=== PATIENT | female | born 1980 | race Caucasian/White ===

== ENCOUNTER 2017-08-01 12:09 | Observation (INO) ==
--- NOTE | 2017-08-01 13:10 | Emergency Department Note ---
Disposition Clinical Impression: Blood loss anemia, Dysfunctional uterine bleeding Disposition: Admitted As Inpatient Time of Disposition: 15:51 Female Urogenital HPI - General Chief complaint: ED Vaginal Bleeding Stated complaint: vaginal bleeding, low HGB Time Seen by Provider: 08/01/17 12:35 Source: patient Limitations: no limitations Nursing Notes Reviewed: Yes Vital Signs Reviewed: Yes - History of Present Illness HPI Narrative: Mrs. awan, 36-year-old female, presents from home for evaluation of persistent heavy vaginal bleeding. Onset 27 days ago. Described as saturating a 10 hour pad every hour. 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 Patient feels fatigued. No vertigo. No fevers, chills, chest pains, palpitations, nausea, vomiting. Patient has a history of heavy menses which typically last 1 week. Patient has a history of uterine fibroids and is status post remote D&C and ablation. TEST MANAGER: Dr. Strong Pt Subjective Complaint: vaginal bleeding Onset (ago): week(s) Improves with: none Worsens with: none Urinary Symptoms: no dysuria, no urgency Vaginal discharge: blood : no - Related Data Home Medications Medication Instructions Recorded Confirmed Acetaminophen/Diphenhydramine [Eql 1 each PO HS PRN 08/01/17 08/01/17 Acetaminophen Pm Caplet] DiphenhydraMINE [Benadryl] 25 mg PO HS PRN 08/01/17 08/01/17 Allergies Allergy/AdvReac Type Severity Reaction Status Date / Time No Known Allergies Allergy Verified 12/13/15 03:44 All systems ED: reviewed and negative except as stated. Review of Systems: As Per HPI Constitutional: Denies: fever, chills Cardiovascular: Denies: chest pain Respiratory: Denies: cough, dyspnea Gastrointestinal: Denies: nausea, vomiting Genitourinary: Denies: dysuria Past Medical History - Past Medical History Attestation: Yes The following information was validated with the patient. Medical history: Reports: non-contributory Psychiatric history: Reports: no psych history TEST MANAGER history: Reports: bilateral tubal ligation, other - Social History Smoking Status: Former smoker Smokeless Tobacco Status: No Alcohol use: Reports: rarely Drug use: Reports: none Physical Exam Vital Signs Reviewed General: Patient is alert, oriented, and in no acute distress. HEENT: No facial asymmetry. Head is normocephalic and atraumatic. PERRLA. Conjunctiva pale. Cardiovascular: Heart regular rate and rhythm without clicks, rubs, gallops, or murmurs. Bilateral radial pulses 2/4 equal. Respiratory: Symmetric chest rise with good respiratory effort. Bilateral breath sounds are clear without wheezing, crackles, or rhonchi. Abdomen: Bowel sounds present normoactive x-4 quadrants. Abdomen is soft, nondistended. Mild suprapubic tenderness. Speculum Pelvic exam: External genitalia unremarkable. No blood at the vaginal vestibule. Dark blood in vaginal vault with small pooling posteriorly. Cervical os closed with trickle of dark blood. Musculoskeletal: Spontaneously moving all extremities Neuro: GCS 15. Alert and oriented 4. Skin: Warm, dry, pale, intact. Psych: Patient's affect is appropriate for situation. - General Limitations: no limitations General appearance: alert, in no apparent distress Course Course Narrative: Patient does appear pale but physical exam. Vital signs stable without tachycardia or hypotension. We will repeat lab work, type and screen, perform pelvic exam. Patient is anemic at hemoglobin 6.6. She has some macrocytosis inferring some component of iron deficiency. Pelvic exam shows blood from cervical os without hemorrhage. We will consult OB for recommendations. TEST MANAGER is agreeable to admission to unit for transfusion and continued evaluation. I discussed the above the patient and her at bedside. They are agreeable to this plan of action. Consent for transfusion obtained. 2 units RBC ordered. Patient admitted to TEST MANAGER. Vital Signs Temperature 98.4 F 08/01/17 12:21 Pulse Rate 91 08/01/17 12:21 Respiratory Rate 18 08/01/17 12:21 Blood Pressure 127/89 08/01/17 12:21 O2 Sat by Pulse Oximetry 100 08/01/17 12:21 Temperature 98.4 F 08/01/17 12:21 Pulse Rate 81 08/01/17 15:33 Respiratory Rate 16 08/01/17 16:35 Blood Pressure 110/54 08/01/17 16:35 O2 Sat by Pulse Oximetry 98 08/01/17 15:33 Oxygen Delivery Oxygen Delivery Room Air Urogenital-Female - Lab Data Result diagrams: 08/01/17 13:05 08/01/17 13:05 Lab Results 08/01/17 08/01/17 08/01/17 Range/Units 13:05 13:05 13:05 WBC 6.0 (4.3-11.1) K/mcL RBC 3.39 L (3.82-4.97) M/mcL Hgb 6.6 L (11.5-15.4) g/dL Hct 23.5 L (35.3-44.9) % MCV 69.3 L (83.0-100.0) fL MCH 19.5 L (28.0-33.3) pg MCHC 28.1 L (31.6-35.5) g/dL RDW 15.9 H (11.5-14.5) % Plt Count 283 (140-400) K/mcL MPV 10.3 (9.4-12.4) fL Immature Gran % 0.3 (0-4) % Seg Neutrophils % 71.1 % Lymphocytes % 19.5 % Monocytes % 6.5 % Eosinophils % 1.8 % Basophils % 0.8 % Neutrophils # 4.3 (1.6-8.9) K/mcL Lymphocytes # 1.2 (0.6-4.6) K/mcL Monocytes # 0.4 (0.0-1.3) K/mcL Eosinophils # 0.1 (0.0-0.6) K/mcL Basophils # 0.1 (0.0-0.2) K/mcL Platelet Estimate Normal (Normal) Large Platelets Present A (Not Present) Hypochromasia Present A (Not Present) Poikilocytosis 1+ A (Not Present) Anisocytosis 1+ A (Not Present) Microcytosis Present A (Not Present) Sodium 140 (136-145) mEq/L Potassium 3.5 (3.5-4.5) mEq/L Chloride 108 (98-109) mEq/L Carbon Dioxide 24 (19-29) mEq/L BUN 11 (7-20) mg/dL Creatinine 0.76 (0.57-1.11) mg/dL Est GFR ( Amer) > 60 (> 60) Est GFR (Non-Af Amer) > 60 (> 60) BUN/Creatinine Ratio 14 (6-26) Glucose 100 H (70-99) mg/dL Calculated Osmolality 289 (280-300) Calcium 9.0 (8.6-10.8) mg/dL Serum , Qual Negative (Negative) Blood Type Antibody Screen Crossmatch 08/01/17 Range/Units 13:05 WBC (4.3-11.1) K/mcL RBC (3.82-4.97) M/mcL Hgb (11.5-15.4) g/dL Hct (35.3-44.9) % MCV (83.0-100.0) fL MCH (28.0-33.3) pg MCHC (31.6-35.5) g/dL RDW (11.5-14.5) % Plt Count (140-400) K/mcL MPV (9.4-12.4) fL Immature Gran % (0-4) % Seg Neutrophils % % Lymphocytes % % Monocytes % % Eosinophils % % Basophils % % Neutrophils # (1.6-8.9) K/mcL Lymphocytes # (0.6-4.6) K/mcL Monocytes # (0.0-1.3) K/mcL Eosinophils # (0.0-0.6) K/mcL Basophils # (0.0-0.2) K/mcL Platelet Estimate (Normal) Large Platelets (Not Present) Hypochromasia (Not Present) Poikilocytosis (Not Present) Anisocytosis (Not Present) Microcytosis (Not Present) Sodium (136-145) mEq/L Potassium (3.5-4.5) mEq/L Chloride (98-109) mEq/L Carbon Dioxide (19-29) mEq/L BUN (7-20) mg/dL Creatinine (0.57-1.11) mg/dL Est GFR ( Amer) (> 60) Est GFR (Non-Af Amer) (> 60) BUN/Creatinine Ratio (6-26) Glucose (70-99) mg/dL Calculated Osmolality (280-300) Calcium (8.6-10.8) mg/dL Serum , Qual (Negative) Blood Type O POSITIVE Antibody Screen NEGATIVE Crossmatch See Detail Attestation Statement - Attestation Attestation: I examined this patient and my medical decision-making was reviewed with the Resident Physician. I agree with the documented findings, disposition and treatment plan as described except to the extent set forth below. 36-year-old female presents because of persistent vaginal bleeding. She has had nasal bleeding for the past 27 days. She now complains of feeling fatigued. No dyspnea. No chest pain. She has had chronic anemia. Seen by her PCP and appears to hemoglobin was reported as low. She has had uterine ablation in the past but has continued with frequent menses since that time. Pleasant, well-appearing female in no apparent distress. Oropharynx clear, mucous murmurs moist. Conjunctiva pale Chest clear to auscultation bilaterally. Abdomen soft nondistended, nontender. Flanks nontender. Extremities warm and dry. Pelvic exam done per Dr. Conner reveals some active cervical bleeding. Hemoglobin found to be 6.6. Case discussed with on-call MAIL OFFICER and they will admit to their service for transfusion and further evaluation
[2017-08-01 13:11] LABS: Mean Corpuscular Hemoglobin 19.5 pg (28.0-33.3); Red Cell Distribution Width 15.9 % (11.5-14.5)
[2017-08-01 13:13] LABS: Basophils # 0.1 K/mcL (0.0-0.2); Basophils % 0.8 %; Eosinophils # 0.1 K/mcL (0.0-0.6); Eosinophils % 1.8 %; Hematocrit 23.5 % (35.3-44.9); Immature Granulocytes % 0.3 % (0-4); Lymphocytes # 1.2 K/mcL (0.6-4.6); Lymphocytes % 19.5 %; Mean Corpuscular HGB Conc 28.1 g/dL (31.6-35.5); Mean Corpuscular Volume 69.3 fL (83.0-100.0); Mean Platelet Volume 10.3 fL (9.4-12.4); Monocytes # 0.4 K/mcL (0.0-1.3); Monocytes % 6.5 %; Platelet Count 283 K/mcL (140-400); Red Blood Count 3.39 M/mcL (3.82-4.97); Segmented Neutrophils % 71.1 %
[2017-08-01 13:28] LABS: BUN/Creatinine Ratio 14 (6-26); Blood Urea Nitrogen 11 mg/dL (7-20); Carbon Dioxide 24 mEq/L (19-29); Chloride 108 mEq/L (98-109); Glucose 100 mg/dL (70-99); Osmolality,Calculated 289 (280-300); Potassium 3.5 mEq/L (3.5-4.5); Sodium 140 mEq/L (136-145); eGFR For African Americans > 60 (> 60); eGFR For Non-African Americans > 60 (> 60)
[2017-08-01 13:39] LABS: Hemoglobin 6.6 g/dL (11.5-15.4); Neutrophils # 4.3 K/mcL (1.6-8.9)
[2017-08-01 13:48] LABS: Large Platelets Present (Not Present); Platelet Estimate Normal (Normal)
[2017-08-01 13:49] LABS: Anisocytosis 1+ (Not Present); Poikilocytosis 1+ (Not Present)
[2017-08-01 13:50] LABS: Hypochromasia Present (Not Present); Microcytosis Present (Not Present)
--- NOTE | 2017-08-01 15:41 | OB/GYN History & Physical ---
Date of Encounter: 08/01/17 Time of Encounter: 15:35 Assessment and Plan (1) Anemia, blood loss Current visit: Yes Status: Acute Presents with long history of heavy menses, worsening over the past 3 months D&C and ablation in 2011 due to heavy menses and uterine fibroids Hgb 6.6, Hct 23.5 - symptomatic with light-headedness, dizziness, palpitations, and dyspnea on exertion Admit to post- unit for transfusion Obtain pelvic ultrasound Transfuse 2U pRBCs and recheck H/H Pt was seen, examined, and discussed with Dr. Chávez and he is agreeable to the plan. (2) Dysfunctional uterine bleeding Current visit: Yes Status: Acute History of Present Illness Chief complaint: Vaginal Bleeding HPI: Ms. King is a 36 year old female with PMH of irregular heavy menses, uterine fibroids, and benign breast tumors, presented to the ED with prolonged vaginal bleeding. She reports that she has had vaginal bleeding for the past 26 days, since 07/06/17. Her bleeding has been very irregular, but at times her bleeding has been very heavy, saturating up to 10 pads a day. She reports a long history of heavy menses and a typical period for her is about 7 days with heavy flow for the first few days. In 2011 she had a D&C and ablation for heavy menses by Dr. Strong and told that if it continues she would likely need a hysterectomy. She is currently symptomatic with light-headedness, dizziness, palpitations, and dyspnea on exertion. Other ROS includes some mild intermittent crampy abdominal pain and tingling in her fingers. Past Med Surg Social Fam HX - Past Medical History Medical history: non-contributory Psychiatric history: no psych history - Past Surgical History Surgical History: other (D&C) - Social History Smoking Status: Former smoker Smokeless Tobacco Status: No Alcohol use: rarely Drug use: none Obstetrical History - Pregnancies : 3 Para: 3 Term: 3 : 0 Ab's: 0 Livin Medications and Allergies Acetaminophen/Diphenhydramine [Eql Acetaminophen Pm Caplet] 1 each PO HS PRN [History] DiphenhydraMINE [Benadryl] 25 mg PO HS PRN 08/01/17 [History] 3 Allergy/AdvReac Type Severity Reaction Status Date / Time No Known Allergies Allergy Verified 12/13/15 03:44 Review of System OB All systems PM: reviewed and no additional remarkable complaints except as stated Exam - Vital Signs Vital signs: Initial Vital Signs Temp Pulse Resp BP Pulse Ox 98.4 F 91 18 127/89 100 08/01/17 12:21 08/01/17 12:21 08/01/17 12:21 08/01/17 12:21 08/01/17 12:21 - Constitutional Constitutional: well developed, well nourished, no acute distress, average body habitus, other (pale skin) - HEENT HEENT: Normocephaly, Mucus Membranes Dry - Lungs Respiratory exam: CTAB - Cardiovascular Cardiovascular exam: RRR, +S1, +S2 - Abdomen Abdomen: Present: bowel sounds normal, non tender - Extremities Extremities exam: normal capillary refill, normal inspection, radial pulses palpable and symmetrical Results Result Diagrams: 08/01/17 13:05 08/01/17 13:05 Abnormal lab results RBC 3.39 M/mcL (3.82-4.97) L 08/01/17 13:05 Hgb 6.6 g/dL (11.5-15.4) L 08/01/17 13:05 Hct 23.5 % (35.3-44.9) L 08/01/17 13:05 MCV 69.3 fL (83.0-100.0) L 08/01/17 13:05 MCH 19.5 pg (28.0-33.3) L 08/01/17 13:05 MCHC 28.1 g/dL (31.6-35.5) L 08/01/17 13:05 RDW 15.9 % (11.5-14.5) H 08/01/17 13:05 Large Platelets Present (Not Present) A 08/01/17 13:05 Hypochromasia Present (Not Present) A 08/01/17 13:05 Poikilocytosis 1+ (Not Present) A 08/01/17 13:05 Anisocytosis 1+ (Not Present) A 08/01/17 13:05 Microcytosis Present (Not Present) A 08/01/17 13:05 Glucose 100 mg/dL (70-99) H 08/01/17 13:05 All other labs normal.
[2017-08-01] MEDS ORDERED: 0.9 % Sodium Chloride 1,000 ML ONE (17:13)
[2017-08-01] MEDS: 0.9 % Sodium Chloride 1,000 ML IVC SCH (17:43)
[2017-08-02 00:21] LABS: Basophils # 0.1 K/mcL (0.0-0.2); Basophils % 0.8 %; Eosinophils # 0.2 K/mcL (0.0-0.6); Eosinophils % 2.8 %; Hematocrit 29.3 % (35.3-44.9); Immature Granulocytes % 0.3 % (0-4); Immature Platelets 2.6 % (1.1-6.1); Lymphocytes # 1.7 K/mcL (0.6-4.6); Lymphocytes % 28.5 %; Mean Corpuscular HGB Conc 29.4 g/dL (31.6-35.5); Mean Corpuscular Hemoglobin 21.1 pg (28.0-33.3); Monocytes # 0.7 K/mcL (0.0-1.3); Monocytes % 10.8 %; Neutrophils # 3.4 K/mcL (1.6-8.9); Platelet Count 281 K/mcL (140-400); Red Blood Count 4.07 M/mcL (3.82-4.97); Red Cell Distribution Width 17.3 % (11.5-14.5); Segmented Neutrophils % 56.8 %
[2017-08-02 00:23] LABS: Hemoglobin 8.6 g/dL (11.5-15.4)
[2017-08-02 00:25] LABS: Prothrombin Time 10.8 Seconds (9.4-12.1)
[2017-08-02 00:27] LABS: Activated Partial Thrombo Time 27.1 Seconds (26.0-36.0)
[2017-08-02 00:36] LABS: Platelet Estimate Normal (Normal)
[2017-08-02 00:37] LABS: Anisocytosis 1+ (Not Present)
--- NOTE | 2017-08-02 08:42 | Discharge Summary ---
Date of Encounter: 08/02/17 Time of Encounter: 08:45 - Discharge Diagnosis (1) Anemia, blood loss Priority: Primary Status: Acute Comments: Patient presents with hx of heavy menses that have been worsening over past 3 months. Hx of D&C and ablation in 2011. H/H was 6.6/23.5. Patient received two units of pRBCs and recheck H/H was 8.6/29.3. Patient symptoms have improved and she states she is feeling back to normal. She states the bleeding is not as heavy. Vital signs are currently stable. Coags unremarkable. Will prescribe iron supplementation. (2) Dysfunctional uterine bleeding Priority: Secondary Status: Acute Comments: Patient reports a long history of heavy menses with history of ablation in 2011. Patient sees [address] Strong. Dr. Chávez did see the patient prior to discharge and we discussed with the patient follow up within 2 weeks for a ultrasound and for further treatment including control or hysterectomy for her bleeding. Patient is currently asymptomatic and vital signs are within normal limits. - Discharge Medications Home Medications: Acetaminophen/Diphenhydramine [Eql Acetaminophen Pm Caplet] 1 each PO HS PRN [History] DiphenhydraMINE [Benadryl] 25 mg PO HS PRN 08/01/17 [History] Ferrous Sulfate 325 mg PO DAILY #60 tablet 08/02/17 [Rx] Allergies/Adverse Reactions: 3 Allergy/AdvReac Type Severity Reaction Status Date / Time No Known Allergies Allergy Verified 12/13/15 03:44 Data Procedures and tests throughout hospitalization: Laboratory Tests 08/02/17 08/02/17 00:13 00:13 WBC 6.0 RBC 4.07 Hgb 8.6 L D Hct 29.3 L MCV 72.0 L MCH 21.1 L MCHC 29.4 L RDW 17.3 H Plt Count 281 MPV 10.0 Immature Gran % 0.3 Seg Neutrophils % 56.8 Lymphocytes % 28.5 Monocytes % 10.8 Eosinophils % 2.8 Basophils % 0.8 Neutrophils # 3.4 Lymphocytes # 1.7 Monocytes # 0.7 Eosinophils # 0.2 Basophils # 0.1 Platelet Estimate Normal Immature Plt Fraction 2.6 Anisocytosis 1+ A PT 10.8 INR 1.0 APTT 27.1 Labs on day of discharge: Labs from last 24 hours 08/02/17 08/02/17 00:13 00:13 WBC 6.0 RBC 4.07 Hgb 8.6 L D Hct 29.3 L MCV 72.0 L MCH 21.1 L MCHC 29.4 L RDW 17.3 H Plt Count 281 MPV 10.0 Immature Gran % 0.3 Seg Neutrophils % 56.8 Lymphocytes % 28.5 Monocytes % 10.8 Eosinophils % 2.8 Basophils % 0.8 Neutrophils # 3.4 Lymphocytes # 1.7 Monocytes # 0.7 Eosinophils # 0.2 Basophils # 0.1 Platelet Estimate Normal Immature Plt Fraction 2.6 Anisocytosis 1+ A PT 10.8 INR 1.0 APTT 27.1 Date of admission: 08/01/17 16:21 Primary care physician: Lalo Peace DO Discharging clinician: Fabricio Chávez Anticipated date of discharge: 08/02/17 - Patient Status Disposition: Home, Self-Care Condition: Good Functional capacity at discharge: independent ambulation Overall status at discharge: patient is back to baseline - Discharge Instructions Follow Up With: Lalo Peace DO [Primary Care Provider] - Additional Instructions: 1. Follow up with Dr. Strong's office within the next 2 weeks for further treatment and evaluation including discussion of control vs hysterectomy for treatment in vaginal bleeding. 2. Return to the emergency department if you experience any returning or concerning symptoms such as lightheadedness, shortness of breath, chest pain, pelvic pain, increasing vaginal bleeding or any other symptoms of concern. - Diet and Activity Activity: resume usual activities as tolerated Diet: regular diet Hospital Course [employer]CH[employer] Hospital course: Patient is a 36 female with history of dysfunctional uterine bleeding requiring D&C and ablation in 2011 presenting from the ED for symptomatic anemia. Patient states she has had vaginal bleeding for the past 26 days, since 07/06/17. The bleeding is irregular. Patient hgb was found to be 6.6. She was having symptoms of lightheadedness. The patient received 2 units of pRBCs and repeat hgb was 8.6. She is currently stable. Symptoms have improved. Patient was seen by Dr. Chávez in the room and discussed f/u within the next two weeks for U/S and discussion of control vs hysterectomy for the patient's bleeding. We discussed return precautions. Patient agrees with this plan. Time Attestation: Total time spent providing and/or coordinating discharge services: Exam - Constitutional Vitals: Temp Pulse Resp BP Pulse Ox 97.5 F L 86 16 106/66 100 08/01/17 23:10 08/01/17 23:10 08/02/17 08:02 08/01/17 23:10 08/01/17 23:10 General appearance IM: A&O X 3, no acute distress, answers questions appropriately - Respiratory Respiratory exam: Present: CTAB - Cardiovascular Cardiovascular exam IM: Present: RRR, +S1, +S2 - GI/Abdominal GI/Abdominal exam IM: normal bowel sounds, soft - Extremities Exam Extremities exam IM: Present: full ROM, normal capillary refill, normal inspection, radial pulses palpable and symmetrical. Absent: calf tenderness - Neurological Exam Neurological exam: alert, normal gait, oriented X3, no focal deficits, strengths equal and symetr throughout
[2017-08-02 09:11] VITALS: BP 100/59
--- NOTE | 2017-08-02 10:50 | OB/GYN Progress Note ---
Date of Encounter: 08/02/17 Time of Encounter: 10:47 - Assessment and Plan (1) Anemia, blood loss Current Visit: Yes Status: Acute will start ferrous sulfate (2) Dysfunctional uterine bleeding Current Visit: Yes Status: Acute repeat cbc start provera daily Subjective - Subjective Principal diagnosis: DUB, Anemia Interval history: Called to patient's room. Patient concerned that the bleeding is the same as it has been for the past few months. Reporting changing 1 pad every [address] patient with Dr[address] Diallo will draw repeat cbc and start provera 10mg po daily. Patient to follow up with Dr. Strong in 1 week. Patient reports: appetite normal, voiding normally, no dizzy ambulation, no nauseated Objective - Vital Signs Latest vital signs: Vital Signs Temp Pulse Resp BP Pulse Ox 08/02/17 08:02 16 08/02/17 07:40 98.5 F 80 16 100/59 100 08/01/17 23:10 97.5 F L 86 15 106/66 100 08/01/17 20:50 98.5 F 100 14 106/55 99 08/01/17 20:29 98.5 F 87 15 120/80 100 08/01/17 20:05 97.9 F 96 15 121/70 100 08/01/17 17:53 98.2 F 87 16 118/69 100 08/01/17 17:38 97.8 F 87 16 132/71 100 08/01/17 16:54 98.2 F 88 16 121/67 100 08/01/17 16:35 16 110/54 Intake and Output 08/01/17 08/02/17 08/02/17 23:59 07:59 15:59 Intake Total 600 / 600 Output Total 1800 / 1800 Balance 600 / 600 -1800 / -1800 Intake: Blood Product 600 / 600 Rbcs Leuko Poor As-1 Unit 300 / 300 [id number] Rbcs Leuko Poor As-3 Ph Unit 300 / 300 [id number] Output: Urine 1800 / 1800 Other: Stool Characteristics Normal for Patient - I&O's I&O's: Intake & Output 07/30/17 07/31/17 08/01/17 08/02/17 23:59 23:59 23:59 23:59 Intake Total 600 / 600 Output Total 1800 / 1800 Balance 600 / 600 -1800 / -1800 - Labs Labs: Abnormal lab results Hgb 8.6 g/dL (11.5-15.4) L D 08/02/17 00:13 Hct 29.3 % (35.3-44.9) L 08/02/17 00:13 MCV 72.0 fL (83.0-100.0) L 08/02/17 00:13 MCH 21.1 pg (28.0-33.3) L 08/02/17 00:13 MCHC 29.4 g/dL (31.6-35.5) L 08/02/17 00:13 RDW 17.3 % (11.5-14.5) H 08/02/17 00:13 Large Platelets Present (Not Present) A 08/01/17 13:05 Hypochromasia Present (Not Present) A 08/01/17 13:05 Poikilocytosis 1+ (Not Present) A 08/01/17 13:05 Anisocytosis 1+ (Not Present) A 08/02/17 00:13 Microcytosis Present (Not Present) A 08/01/17 13:05 Glucose 100 mg/dL (70-99) H 08/01/17 13:05 Consult Discharge Plan - Plan Additional Instructions: 1. Follow up with Dr. Strong's office within the next 2 weeks for further treatment and evaluation including discussion of control vs hysterectomy for treatment in vaginal bleeding. 2. Return to the emergency department if you experience any returning or concerning symptoms such as lightheadedness, shortness of breath, chest pain, pelvic pain, increasing vaginal bleeding or any other symptoms of concern. Referrals: Kentrell Strong DO [Partnered Physician] - 08/12/17 2:15 pm Lalo Peace DO [Primary Care Provider] - Prescriptions: Ferrous Sulfate 325 mg PO DAILY #60 tablet Medroxyprogesterone Acetate [Provera] 10 mg PO DAILY #14 tablet
[2017-08-02] MEDS: 0.9 % Sodium Chloride 1,000 ML IVC SCH (10:53)
[2017-08-02 11:05] LABS: Basophils # 0.1 K/mcL (0.0-0.2); Basophils % 0.9 %; Eosinophils # 0.2 K/mcL (0.0-0.6); Eosinophils % 3.7 %; Hematocrit 28.6 % (35.3-44.9); Hemoglobin 8.4 g/dL (11.5-15.4); Immature Granulocytes % 0.3 % (0-4); Lymphocytes # 1.3 K/mcL (0.6-4.6); Lymphocytes % 22.8 %; Mean Corpuscular HGB Conc 29.4 g/dL (31.6-35.5); Mean Corpuscular Hemoglobin 20.9 pg (28.0-33.3); Mean Corpuscular Volume 71.1 fL (83.0-100.0); Mean Platelet Volume 9.6 fL (9.4-12.4); Monocytes # 0.5 K/mcL (0.0-1.3); Monocytes % 8.5 %; Neutrophils # 3.8 K/mcL (1.6-8.9); Platelet Count 266 K/mcL (140-400); Red Blood Count 4.02 M/mcL (3.82-4.97); Red Cell Distribution Width 17.2 % (11.5-14.5); Segmented Neutrophils % 63.8 %
== END 2017-08-02 11:22 | disposition home or self-care (01) ==
LOC: 1NENUOBS 12:09 → EMEROO 12:09 → 1NENUOBS 16:29
PROVIDERS: ADMIT Family Medicine; ATTEND Obstetrics & Gynecology